=== PATIENT | male | born 1995 | race Caucasian/White ===

== ENCOUNTER 2018-04-09 17:28 | Emergency (ER) | payer OTHER ==
[2018-04-09 17:33] VITALS: BMI 39.5
--- NOTE | 2018-04-09 18:56 | PDOC ---
Attending Attestation - Resident Resident Name: KathyAyesha - ED Attending Attestation I have performed the following: I have examined & evaluated the patient, The case was reviewed & discussed with the resident, I agree w/resident's findings & plan, Exceptions are as noted - HPI HPI: 04/09/18 18:54 22-year-old male no past medical history here today complaining of hematuria. Patient's also complaining of some dysuria urgency and frequency in addition is complaining of left-sided flank pain no fevers no chills no nausea vomiting no other current complaints no history of renal colic - Physicial Exam PE: 04/09/18 18:54 Awake alert no acute distress lungs are clear bilaterally heart is regular without any murmurs rubs or gallops abdomen is soft and nontender skin is warm and dry abdomen is with mild suprapubic tenderness no rebound no guarding no CVA tenderness - Medical Decision Making 04/09/18 18:55 Differential diagnosis includes hematuria from renal colic, pyelonephritis or UTI urethritis plan UA urine culture CBC lites focus bedside ultrasound renal Focus ED renal up some performed indication flank pain hematuria findings there is mild left-sided hydronephrosis and intrarenal hyperechoic focus possible stone however can't tell definitively. Bladder is nondistended impression no hydronephrosis nondistended bladder next Due to the fact the patient is having dysuria and concerns for mild hydro-on his exam will order CT abdomen to rule out the possibility of an infected stone UA pain control Toradol and reassess
[2018-04-09] MEDS ORDERED: KETOROLAC TROMETHAMINE 30 MG/1 ML VIAL IVPUSH ONE (18:57)
[2018-04-09] MEDS ORDERED: SODIUM CHLORIDE 0.9% 1000 ML INFUS.BAG IV ONE (18:57)
--- NOTE | 2018-04-09 18:58 | PDOC ---
History of Present Illness - General Chief Complaint: Hematuria Stated Complaint: HEMATURIA Time Seen by Provider: 04/09/18 17:35 History Source: Patient - History of Present Illness Initial Comments: 04/09/18 18:57 22 year old male who presents with 5 day h/o blood in his urine. Endorses associated burning, and intermittent L flank pain, denies fevers/chills, abdominal cramping. No known h/o nephrolithiasis or previous hematuria. Notes he is sexually active with multiple partners and intermittently uses condoms. States he has never been tested for STI's. Patient denies chest pain, shortness of breath, abdominal pain, nausea/vomiting , diarrhea/constipation. NKDA Surgical: denies Social: denies nicotine, social alcohol, daily marijuana. PMD: None - will refer to resident clinic. Past History - Past Medical History Allergies/Adverse Reactions: Allergies Allergy/AdvReac Type Severity Reaction Status Date / Time No Known Allergies Allergy Verified 04/09/18 17:30 Home Medications: Ambulatory Orders Hyoscyamine Odt [Levsin Odt -] 0.125 mg PO DAILY PRN #7 tab.rapdis 08/09/16 Ondansetron HCl [Zofran] 4 mg PO BID PRN #10 tablet 08/09/16 Asthma: Yes COPD: No - Immunization History Immunization Up to Date: Yes - Suicide/Smoking/Psychosocial Hx Smoking History: Never smoked Have you smoked in the past 12 months: No Hx Alcohol Use: No Drug/Substance Use Hx: No Substance Use Type: None Review of Systems - Review of Systems Constitutional: No: Chills, Fever HEENTM: No: Blurred Vision, Double Vision Respiratory: No: Cough, Shortness of Breath Cardiac (ROS): No: Chest Pain, Lightheadedness, Palpitations, Syncope ABD/GI: Yes: Abdominal cramping. No: Constipated, Diarrhea, Nausea, Vomiting : Yes: Dysuria, Hematuria *Physical Exam - Vital Signs Last Vital Signs Temp Pulse Resp BP Pulse Ox 98.8 F 62 16 121/66 95 04/09/18 17:30 04/09/18 17:30 04/09/18 17:30 04/09/18 17:30 04/09/18 17:30 - Physical Exam General Appearance: Yes: Nourished, Appropriately Dressed Neck: positive: Trachea midline, Supple Respiratory/Chest: positive: Lungs Clear, Normal Breath Sounds Cardiovascular: positive: S1, S2 Gastrointestinal/Abdominal: positive: Normal Bowel Sounds, Soft Male Genitalia: positive: normal genitalia. negative: discharge, testicular tenderness, testicular mass Musculoskeletal: negative: CVA Tenderness (R), CVA Tenderness (L) Extremity: positive: Normal Capillary Refill, Normal Inspection Integumentary: positive: Normal Color, Dry, Warm Neurologic: positive: Fully Oriented, Alert Medical Decision Making - Medical Decision Making 04/09/18 19:02 22 year old male with hematuria and dysuria. Frontal diagnosis: nephrolithiasis, UTI/pyelonephritis, Urethritis 2/2 gonorrhea/chlamydia. Patient consents to HIV testing. Plan: UA/UC, CBC/CMP, Spiral CT, G/C, HIV + IV fluid. Reassess. 04/09/18 19:08 Patient signed out to Dr. Crum (Resident) and Dr. Sweet (Attending) *DC/Admit/Observation/Transfer Diagnosis at time of Disposition: Hematuria - Referrals Referrals: Christopher Arizmendi MD [Primary Care Provider] - - Patient Instructions - Post Discharge Activity
--- NOTE | 2018-04-09 19:17 | PDOC ---
*Physical Exam - Vital Signs Last Vital Signs Temp Pulse Resp BP Pulse Ox 98.8 F 62 16 121/66 95 04/09/18 17:30 04/09/18 17:30 04/09/18 17:30 04/09/18 17:30 04/09/18 17:30 - Physical Exam Comments: 04/09/18 19:18 Sign out received from Dr. Chavez. 22M no PMH presents with dysuria, hematuria, for the past 5 days and left flank pain. need to rule out cystitis vs pyelonephritis vs nephrolithiasis vs STDs/STIs Labs/imaging/work up pending Reassess <Sukh Crum - Last Filed: 04/09/18 23:33> - Vital Signs Last Vital Signs Temp Pulse Resp BP Pulse Ox 98.3 F 76 17 124/72 100 04/09/18 22:40 04/09/18 22:40 04/09/18 22:40 04/09/18 22:40 04/09/18 22:40 <Lula Mckee - Last Filed: 04/19/18 10:11> ED Treatment Course - LABORATORY CBC & Chemistry Diagram: 04/09/18 20:00 04/09/18 20:00 <Sukh Crum - Last Filed: 04/09/18 23:33> - LABORATORY CBC & Chemistry Diagram: 04/09/18 20:00 04/09/18 20:00 - ADDITIONAL ORDERS Additional order review: 04/09/18 20:00 Urine Culture - Final Urine - Urine Clean Catch 04/09/18 20:00 RBC 4.97 MCV 89.3 MCHC 34.1 RDW 13.4 MPV 8.3 Neutrophils % 60.2 D Lymphocytes % 28.9 D Monocytes % 7.8 D Eosinophils % 2.6 D Basophils % 0.5 - RADIOLOGY Radiology Studies Ordered: Category Date Time Status SPIRAL- RENAL-STONE CT [CT] Stat CT Scan 04/09/18 18:57 Completed - Medications Given in the ED: ED Medications Discontinued Medications Generic Name Dose Route Start Last Admin Trade Name Freq PRN Reason Stop Dose Admin Ketorolac Tromethamine 30 mg 04/09/18 18:57 04/09/18 20:37 Toradol Injection - IVPUSH 04/09/18 18:58 30 mg ONCE ONE Administration Sodium Chloride 1,000 ml 04/09/18 18:57 04/09/18 20:36 Normal Saline - IV 04/09/18 18:58 1,000 ml ONCE ONE Administration <Lula Mckee - Last Filed: 04/19/18 10:11> Medical Decision Making - Medical Decision Making 04/09/18 23:33 labs noted and WNL CT scan shows 0.3cm stone in distal left ureter. WIll d/c home with urology follow up <Sukh Crum - Last Filed: 04/09/18 23:33> *DC/Admit/Observation/Transfer <Sukh Crum - Last Filed: 04/09/18 23:33> <Lula Mckee - Last Filed: 04/19/18 10:11> Diagnosis at time of Disposition: Hematuria Qualifiers: Hematuria type: gross Qualified Code(s): R31.0 - Gross hematuria - Discharge Dispostion Disposition: HOME Condition at time of disposition: Improved - Prescriptions Prescriptions: Ibuprofen [Motrin -] 600 mg PO TID #21 tablet - Referrals Referrals: Christopher Arizmendi MD [Primary Care Provider] - - Patient Instructions - Post Discharge Activity Forms/Work/School Notes: Back to Work
--- NOTE | 2018-04-09 20:03 | PDOC ---
*Physical Exam - Vital Signs Last Vital Signs Temp Pulse Resp BP Pulse Ox 98.8 F 62 16 121/66 95 04/09/18 17:30 04/09/18 17:30 04/09/18 17:30 04/09/18 17:30 04/09/18 17:30 ED Treatment Course - LABORATORY CBC & Chemistry Diagram: 04/09/18 20:00 04/09/18 20:00 Medical Decision Making - Medical Decision Making 04/09/18 22:09 Patient Name: BRANDIN CAIN THIS IS A PRELIMINARY REPORT FROM [facility] DATE OF SERVICE: 2018-04-09 20:55:31 IMAGES: 435 EXAM: CT abdomen and pelvis without IV contrast. Clinical indication: Pain. There are no prior studies available for comparison. Technique: Axial unenhanced CT images of the abdomen and pelvis were obtained followed by coronal and sagittal reformats. Findings: Visualized portions of the lower thorax are within normal limits. The study is somewhat limited due to lack of intra-abdominal fat, oral contrast , and IV contrast. There is no free intra-abdominal gas or fluid. The liver, gallbladder, adrenal, pancreas, and spleen are grossly unremarkable, given limitations of the study. Although there is no obvious hydronephrosis bilaterally there does appear to be a 0.3 cm stone in the expected location of the distal left ureter. There are no other definite renal calculi or phleboliths. However, there is some increased density involving the right renal pyramids suggesting possible developing medullary nephrocalcinosis. The bilateral kidneys are otherwise unremarkable, given the limitations of nonenhanced CT. There are no enlarged abdominal or pelvic lymph nodes, by size criteria. The appendix is not identified with certainty, but what appears to be appendix is unremarkable. The remainder the bowel is grossly unremarkable. The visualized bony structures are within normal limits for the patient's age. Impression: 1. Although there is no obvious hydronephrosis bilaterally there does appear to be 0.3 cm stone in the expected location of the distal left ureter. Correlation with the patient's symptoms is recommended. 2. No other renal calculi bilaterally. However, the left renal mid appears somewhat dense suggesting possible developing medullary nephrocalcinosis. 3. Otherwise, unremarkable CT of the abdomen and pelvis, given the limitations of the study listed above. Individualized dose optimization techniques were used for this CT. THIS DOCUMENT HAS BEEN ELECTRONICALLY SIGNED 04/09/18 22:12 08/26/18 00:29 Pt will go home with motrin for the pain. He understands that he has kidney stone; no UTI. He understands the importance of hydration. No flank pain at this time. *DC/Admit/Observation/Transfer Diagnosis at time of Disposition: Hematuria Qualifiers: Hematuria type: gross Qualified Code(s): R31.0 - Gross hematuria - Discharge Dispostion Disposition: HOME Condition at time of disposition: Improved Decision to Admit order: No - Prescriptions Prescriptions: Ibuprofen [Motrin -] 600 mg PO TID #21 tablet - Referrals Referrals: Christopher Arizmendi MD [Primary Care Provider] - - Patient Instructions - Post Discharge Activity Forms/Work/School Notes: Back to Work
[2018-04-09 20:18] LABS: BASO % 0.5 % (0-2.0); EOS % 2.6 % (0-4.5); HEMATOCRIT 44.4 % (35.4-49); HEMOGLOBIN 15.1 GM/dL (11.7-16.9); LYMPH % 28.9 % (8-40); MCH 30.4 pg (25.7-33.7); MCHC 34.1 g/dl (32.0-35.9); MEAN CELL VOLUME 89.3 fl (80-96); MEAN PLT VOLUME 8.3 fl (7.5-11.1); MONO % 7.8 % (3.8-10.2); NEUT % 60.2 % (42.8-82.8); PLATELET COUNT 270 K/MM3 (134-434); RBC 4.97 M/mm3 (4.00-5.60); RDW 13.4 % (11.9-15.9); WHITE BLOOD COUNT 11.1 K/mm3 (4.0-10.0)
[2018-04-09] MEDS ORDERED: KETOROLAC TROMETHAMINE 30 MG/1 ML VIAL ONE (20:24)
[2018-04-09 20:27] LABS: URINE APPEARANCE CLEAR; URINE BILIRUBIN NEGATIVE (<2.0 mg/dL); URINE COLOR YELLOW; URINE GLUCOSE (UA) NEGATIVE (NEGATIVE); URINE KETONE NEGATIVE (NEGATIVE); URINE LEUK ESTERASE NEGATIVE (NEGATIVE); URINE NITRITE NEGATIVE (NEGATIVE); URINE PROTEIN NEGATIVE (NEGATIVE); URINE UROBILINOGEN NEGATIVE mg/dL (0.2-1.0)
[2018-04-09 20:40] LABS: ALK PHOS 74 U/L (45-117); ANION GAP 7 MMOL/L (8-16); BILIRUBIN,TOTAL 0.3 mg/dL (0.2-1.0); BLOOD UREA NITROGEN 12 mg/dL (7-18); CALCIUM 9.2 mg/dL (8.5-10.1); CHLORIDE 105 mmol/L (98-107); CO2 31 mmol/L (21-32); CREATININE 0.9 mg/dL (0.7-1.3); GLUCOSE,RANDOM 82 mg/dL (74-106); SGOT/AST 15 U/L (15-37); SGPT/ALT 18 U/L (12-78); SODIUM 143 mmol/L (136-145); TOT PROT 6.9 g/dl (6.4-8.2)
[2018-04-10 00:06] VITALS: BP 124/72; PULSE 76; TEMP 98.3
== END 2018-04-09 22:22 | disposition home or self-care (01) ==
LOC: JER 17:28
PROC: 3E0333Z Introduction of Anti-inflammatory into Peripheral Vein, Percutaneous Approach (ICD-10-PCS; principal; 2018-04-09)
DX: N20.0 Calculus of kidney (principal); R31.0 Gross hematuria
CPT/HCPCS: 36415; 74176; 80053; 81003; 85025; 87086; 87389; 87491; 87591; 96374; 99282-25; J7030